=== PATIENT | male | born 1975 | race Caucasian/White ===

== ENCOUNTER 2016-08-06 09:21 | Inpatient (IN) | payer OTHER ==
[2016-08-06 11:59] VITALS: BMI 29.0
--- NOTE | 2016-08-06 14:13 | HP ---
COWS - Scale Resting Pulse: 1= OK 81-100 Sweatin=Flushed/Facial Moisture Restless Observation: 1= Difficult to Sit Still Pupil Size: 0= Normal to Room Light Bone or Joint Aches: 2= Severe Diffuse Aches Runny Nose/ Eye Tearin= Constantly Teary/Runny GI Upset > 30mins: 1= Stomach Cramp Tremor Observation: 2= Slight Tremor Visible Yawning Observation: 2= >3x During Session Anxiety or Irritability: 1=Feels Anxious/Irritable Goose Flesh Skin: 0=Smooth Skin COWS Score: 16 Admission [facility] - HPI Chief Complaint: I am here to detox. Allergies/Adverse Reactions: Allergies Allergy/AdvReac Type Severity Reaction Status Date / Time No Known Drug Allergies Allergy Verified 08/06/16 12:49 seafood Allergy Severe Difficulty Uncoded 08/06/16 12:49 Breathing History of Present Illness: pt is a 40yr old male with a history of heroin dependence seeking detox for treatment. Exam Limitations: No Limitations - Ebola screening Have you traveled outside of the country in the last 21 days: No Have you had contact with anyone from an Ebola affected area: No Have you been sick,other than usual withdrawal symptoms: No Do you have a fever: No - Review of Systems Constitutional: Chills, Diaphoresis, Changes in sleep, Unintentional Wgt. Loss EENT: reports: Tearing, Nose Congestion Respiratory: reports: Cough Cardiac: reports: No Symptoms Reported GI: reports: Nausea, Poor Appetite, Poor Fluid Intake : reports: No Symptoms Reported Musculoskeletal: reports: Back Pain, Joint Pain Integumentary: reports: Flushing, Sweating Neuro: reports: Tingling, Tremors Endocrine: reports: Excessive Sweating, Flushing, Intolerance to Cold, Intolerance to Heat Hematology: reports: No Symptoms Reported Psychiatric: reports: No Sypmtoms Reported, Judgement Intact, Orientated x3, Agitated, Anxious Other Systems: Reviewed and Negative Patient History - Patient Medical History Hx Anemia: No Hx Asthma: No Hx Chronic Obstructive Pulmonary Disease (COPD): No Hx Cancer: No Hx Cardiac Disorders: No Hx Congestive Heart Failure: No Hx Hypertension: No Hx Hypercholesterolemia: No Hx Pacemaker: No HX Cerebrovascular Accident: No Hx Seizures: No Hx Dementia: No Hx Diabetes: No Hx Gastrointestinal Disorders: No Hx Liver Disease: No Hx Genitourinary Disorders: No Hx Sexually Transmitted Disorders: No Hx Renal Disease (ESRD): No Hx Thyroid Disease: No Hx Human Immunodeficiency Virus (HIV): No (negative) Hx Hepatitis C: No (negative) Hx Depression: No Hx Suicide Attempt: No (denies) Hx Bipolar Disorder: No Hx Schizophrenia: No Other Medical History: anxiety - Patient Surgical History Past Surgical History: No - PPD History Previous Implant?: Yes Documented Results: Positive w/o proof Implanted On Prior R Admission?: No PPD to be Administered?: No - Reproductive History Patient is a Female of Child Bearing Age (11 -55 yrs old): No - Smoking Cessation Smoking history: Current every day smoker Aproximately how many cigarettes per day: 10 Hx Chewing Tobacco Use: Yes Initiated information on smoking cessation: Yes 'Breaking Loose' booklet given: 08/06/16 - Substance & Tx. History Hx Substance Use: Yes Substance Use Type: Heroin - Substances Abused Heroin Route: Injection Frequency: Daily Amount used: 5-7 bags Age of first use: 31 Date of Last Use: 08/06/16 Marijuana/Hashish Route: Smoking Frequency: 1-3 times last 30 days Amount used: 1 blunt Age of first use: 17 Date of Last Use: 08/05/16 Family Disease History - Family Disease History Family History: Denies Admission Physical Exam S - Vital Signs Vital Signs: Vital Signs - 24 hr 08/06/16 11:55 Temperature 97.6 F Pulse Rate 83 Respiratory 20 Rate Blood Pressure 117/68 - Physical General Appearance: Yes: Appropriately Dressed, Moderate Distress, Tremorous, Irritable, Sweating, Anxious HEENTM: Yes: Normal Voice, Hearing Decreased, Nasal Congestion, Muffled/Hoarse Voice, Other (soar throat) Respiratory: Yes: Lungs Clear, Normal Breath Sounds, No Respiratory Distress Neck: Yes: No masses,lesions,Nodules Breast: Yes: Within Normal Limits Cardiology: Yes: Regular Rhythm, Regular Rate, S1, S2 Abdominal: Yes: Normal Bowel Sounds Genitourinary: Yes: Within Normal Limits Back: Yes: Normal Inspection Musculoskeletal: Yes: Back pain Extremities: Yes: Normal Inspection, Tremors Neurological: Yes: Fully Oriented, Alert, Normal Response Integumentary: Yes: Normal Color, Diaphoresis, Track [place] Lymphatic: Yes: Within Normal Limits - Diagnostic (1) Opioid dependence with withdrawal Current Visit: Yes Status: Chronic (2) Nicotine dependence Current Visit: Yes Status: Chronic Qualifiers: Nicotine product type: cigarettes Substance use status: uncomplicated Qualified Code(s): F17.210 - Nicotine dependence, cigarettes, uncomplicated (3) Throat soreness Current Visit: Yes Status: Acute Comment: redness/sore throat Cleared for Admission [facility] - Detox or Rehab [facility] Level of Care: Medically Managed Detox Regimen/Protocol: Methadone [facility] Breath Alcohol Content Breath Alcohol Content: 0 Urine Drug Screen - Results Drug Screen Negative: No Urine Drug Screen Results: THC-Marijuana, OPI-Opiates, BZO-Benzodiazepines
[2016-08-06] MEDS ORDERED: MAG HYDROX/AL HYDROX/SIMETH 30 ML UNIT-DOSE CUP PO PRN (14:24)
[2016-08-06] MEDS ORDERED: IBUPROFEN 400 MG TABLET (FP) PO PRN (14:24)
[2016-08-06] MEDS ORDERED: MAGNESIUM CITRATE 300 ML BOTTLE PO PRN (14:24)
[2016-08-06] MEDS ORDERED: ACETAMINOPHEN 325 MG TABLET (FP) PO PRN (14:24)
[2016-08-06] MEDS ORDERED: MENTHOL/PHENOL 1 EACH UD MM PRN (14:24)
[2016-08-06] MEDS ORDERED: guaiFENesin/D-METHORPHAN HB 10 ML UNIT-DOSE CUPS PO PRN (14:24)
[2016-08-06] MEDS ORDERED: MAGNESIUM HYDROX 2400MG/30ML ORAL SUSPENSION 30 ML CUP PO PRN (14:24)
[2016-08-06] MEDS ORDERED: LOPERAMIDE HCL 2 MG CAPSULE PO PRN (14:24)
[2016-08-06] MEDS ORDERED: NICOTINE POLACRILEX 4 MG GUM BUC PRN (14:24)
[2016-08-06] MEDS ORDERED: hydrOXYzine PAMOATE 50 MG CAPSULE (FP) PO PRN (14:24)
[2016-08-06] MEDS ORDERED: P-EPHED 60MG/TRIPROLIDI 2.5MG TABLET PO PRN (14:24)
[2016-08-06] MEDS ORDERED: AZITHROMYCIN 250 MG TABLET (FP) PO ONE (14:38)
[2016-08-06] MEDS ORDERED: METHADONE HCL 10 MG TABLET (FOR DETOX USE ONLY) PO ONE ×2 (14:41→23:00)
[2016-08-06] MEDS: diazePAM 5 MG TABLET PO PRN ×2 (15:08→22:24)
--- NOTE | 2016-08-06 17:11 | CONSULT ---
[facility] Psychiatric Consult - Data Date of interview: 08/06/16 Admission source: [facility] Identifying data: First admission to [facility] for this 40 y/o male seeking detox treatment for heroin and marijuana dependence.Patient is , a father of one,homeless and employed. Substance Abuse History: - Smoking Cessation. Smoking history: Current every day smoker. Aproximately how many cigarettes per day: 10. Hx Chewing Tobacco Use: Yes. Initiated information on smoking cessation: Yes. 'Breaking Loose' booklet given: 08/06/16. - Substance & Tx. History. Hx Substance Use: Yes. Substance Use Type: Heroin. - Substances Abused. Heroin. Route: Injection. Frequency: Daily. Amount used: 5-7 bags. Age of first use: 31. Date of Last Use: 08/06/16. Marijuana/Hashish. Route: Smoking. Frequency: 1-3 times last 30 days. Amount used: 1 blunt. Age of first use: 17. Date of Last Use: 08/05/16. Confirmed by patient. Medical History: Patient endorses good general health. Psychiatric History: No reported history of psychiatric hospitalizations.Patient states that he stopped going to the methadone maintenance clinic at [facility] a month ago.Used to be on 60 mg/ day.Not on any psychotropic medication at this time.Mr Lockwood endorses the diagnosis of Anxiety Disorder (was reportedly prescribed xanax).No history of suicide attempts. Physical/Sexual Abuse/Trauma History: Patient denies. Additional Comment: Urine Drug Screen Results: THC-Marijuana, OPI-Opiates, BZO- Benzodiazepines.Noted. Mental Status Exam - Mental Status Exam Alert and Oriented to: Time, Place, Person Cognitive Function: Good Patient Appearance: Well Groomed Mood: Hopeful, Euthymic Affect: Normal Range Patient Behavior: Fatigued, Cooperative Speech Pattern: Clear, Appropriate Voice Loudness: Normal Thought Process: Goal Oriented Thought Disorder: Not Present Hallucinations: Denies Suicidal Ideation: Denies Homicidal Ideation: Denies Insight/Judgement: Poor Sleep: Poorly, Difficulty falling asleep Appetite: Good Muscle strength/Tone: Normal Gait/Station: Normal Psychiatric Findings - Problem List ([place] 1, 2,3) (1) Opioid dependence with withdrawal Current Visit: Yes Status: Acute (2) Nicotine dependence Current Visit: Yes Status: Acute Qualifiers: Nicotine product type: cigarettes Substance use status: uncomplicated Qualified Code(s): F17.210 - Nicotine dependence, cigarettes, uncomplicated (3) Marijuana dependence Current Visit: Yes Status: Acute (4) Substance induced mood disorder Current Visit: Yes Status: Acute (5) Insomnia Current Visit: Yes Status: Acute - Initial Treatment Plan Initial Treatment Plan: Psychoeducation.Detoxification.Ambien 10 mg po hs prn.Patient is made aware of the potential for parasomnias.He is in agreement with this careplan.Observation.
[2016-08-06] MEDS: CLOTRIMAZOLE 10 MG TROCHE (FP) PO SCH ×2 (17:49→22:24)
[2016-08-06 20:50] LABS: URINE APPEARANCE CLEAR; URINE BILIRUBIN NEGATIVE (NEGATIVE); URINE BLOOD NEGATIVE (NEGATIVE); URINE COLOR LTYELLOW; URINE GLUCOSE (UA) NEGATIVE (NEGATIVE); URINE KETONE NEGATIVE (NEGATIVE); URINE LEUK ESTERASE NEGATIVE (NEGATIVE); URINE NITRITE NEGATIVE (NEGATIVE); URINE PROTEIN NEGATIVE (NEGATIVE); URINE UROBILINOGEN NEGATIVE E.U./dl (0.2-1.0)
[2016-08-06] MEDS: THIAMINE HCL 100 MG TABLET (FP) PO SCH (22:24)
[2016-08-07] MEDS: CLOTRIMAZOLE 10 MG TROCHE (FP) PO SCH ×5 (05:21→22:48)
[2016-08-07 08:36] LABS: HIV 1 & 2 AB NEGATIVE; HIV 1 AGp24 NEGATIVE
[2016-08-07] MEDS ORDERED: METHADONE HCL 10 MG TABLET (FOR DETOX USE ONLY) PO ONE (10:00)
[2016-08-07 10:12] LABS: ALBUMIN 3.6 g/dl (3.4-5.0); ANION GAP 9 (8-16); CALCIUM 8.9 mg/dL (8.5-10.1); CO2 30 mmol/L (21-32); GLUCOSE,RANDOM 108 mg/dL (74-106); MCH 31.5 pg (25.7-33.7); MEAN CELL VOLUME 90.1 fl (80-96); MEAN PLT VOLUME 9.9 fl (7.5-11.1); PLATELET COUNT 197 K/MM3 (134-434); RDW 12.9 % (11.9-15.9); WHITE BLOOD COUNT 7.7 K/mm3 (4.0-10.0)
[2016-08-07 10:16] LABS: ALK PHOS 139 U/L (45-117); BILIRUBIN,TOTAL 0.2 mg/dL (0.2-1.0); COCKROFT - GAULT 132.34; SGOT/AST 34 U/L (15-37); SGPT/ALT 59 U/L (12-78); TOT PROT 6.8 g/dl (6.4-8.2)
[2016-08-07] MEDS: AZITHROMYCIN 250 MG TABLET (FP) PO SCH (10:38)
[2016-08-07] MEDS: PRENATAL VITAMINS W/ FOLIC ACID TABLET (FP) PO SCH (10:38)
[2016-08-07] MEDS: NICOTINE 21 MG/24 HOURS TOPICAL PATCH TD SCH (10:39)
[2016-08-07] MEDS: diazePAM 5 MG TABLET PO PRN ×4 (10:39→22:11)
--- NOTE | 2016-08-07 12:21 | EKG ---
Test Reason : Blood Pressure : / mmHG Vent. Rate : 083 BPM Atrial Rate : 083 BPM P-R Int : 138 ms QRS Dur : 106 ms QT Int : 364 ms P-R-T Axes : 052 060 035 degrees QTc Int : 427 ms NORMAL SINUS RHYTHM NORMAL ECG NO PREVIOUS ECGS AVAILABLE Confirmed by MD MATTHEW, TEODORA ([id number]) on 08/07/2016 12:21:37 PM Referred By: Charles Kapadia Confirmed By:TEODORA CASTRO MD
--- NOTE | 2016-08-07 12:52 | PN ---
S COWS - Scale Resting Pulse: 0= [place] 80 or Below Sweatin= Chills/Flushing Restless Observation: 3= Extraneous Movement Pupil Size: 1= Pupils >than Normal Bone or Joint Aches: 2= Severe Diffuse Aches Runny Nose/ Eye Tearin= Runny Nose/Eyes GI Upset > 30mins: 3= Vomiting/Diarrhea Tremor Observation of Outstretched Hands: 2= Slight Tremor Visible Yawning Observation: 1= 1-2x During Session Anxiety or Irritability: 2=Irritable/Anxious Goose Flesh Skin: 0=Smooth Skin COWS Score: 17 S Progress Note (SOAP) Subjective: ALERT,IRRITABLE,ANXIOUS,INTERRUPTED SLEEP,TREMOR,PAIN IN THE BODY AND BACK Objective: 08/07/16 12:51 Vital Signs Temperature 98.6 F 08/07/16 10:00 Pulse Rate 70 08/07/16 10:00 Respiratory Rate 18 08/07/16 10:00 Blood Pressure 128/83 08/07/16 10:00 O2 Sat by Pulse Oximetry (%) EKG NSR,NORMAL ECG Laboratory Last Values WBC 7.7 K/mm3 (4.0-10.0) 08/07/16 06:00 RBC 4.26 M/mm3 (4.00-5.60) 08/07/16 06:00 Hgb 13.4 GM/dL (11.7-16.9) 08/07/16 06:00 Hct 38.4 % (35.4-49) 08/07/16 06:00 MCV 90.1 fl (80-96) 08/07/16 06:00 MCHC 35.0 g/dl (32.0-35.9) 08/07/16 06:00 RDW 12.9 % (11.9-15.9) 08/07/16 06:00 Plt Count 197 K/MM3 (134-434) 08/07/16 06:00 MPV 9.9 fl (7.5-11.1) 08/07/16 06:00 Sodium 139 mmol/L (136-145) 08/07/16 06:00 Potassium 3.7 mmol/L (3.5-5.1) 08/07/16 06:00 Chloride 100 mmol/L (98-107) 08/07/16 06:00 Carbon Dioxide 30 mmol/L (21-32) 08/07/16 06:00 Anion Gap 9 (8-16) 08/07/16 06:00 BUN 15 mg/dL (7-18) 08/07/16 06:00 Creatinine 1.0 mg/dL (0.7-1.3) 08/07/16 06:00 Creat Clearance w eGFR > 60 (>60) 08/07/16 06:00 Random Glucose 108 mg/dL (74-106) H 08/07/16 06:00 Calcium 8.9 mg/dL (8.5-10.1) 08/07/16 06:00 Total Bilirubin 0.2 mg/dL (0.2-1.0) 08/07/16 06:00 AST 34 U/L (15-37) 08/07/16 06:00 ALT 59 U/L (12-78) 08/07/16 06:00 Alkaline Phosphatase 139 U/L (45-117) H 08/07/16 06:00 Total Protein 6.8 g/dl (6.4-8.2) 08/07/16 06:00 Albumin 3.6 g/dl (3.4-5.0) 08/07/16 06:00 Urine Color Ltyellow 08/06/16 15:45 Urine Appearance Clear 08/06/16 15:45 Urine pH 5.0 (5.0-8.0) 08/06/16 15:45 Ur Specific [place] 1.010 (1.005-1.025) 08/06/16 15:45 Urine Protein Negative (NEGATIVE) 08/06/16 15:45 Urine Glucose (UA) Negative (NEGATIVE) 08/06/16 15:45 Urine Ketones Negative (NEGATIVE) 08/06/16 15:45 Urine Blood Negative (NEGATIVE) 08/06/16 15:45 Urine Nitrite Negative (NEGATIVE) 08/06/16 15:45 Urine Bilirubin Negative (NEGATIVE) 08/06/16 15:45 Urine Urobilinogen Negative E.U./dl (0.2-1.0) 08/06/16 15:45 Ur Leukocyte Esterase Negative (NEGATIVE) 08/06/16 15:45 RPR Titer Nonreactive (NONREACTIVE) 08/07/16 06:00 Hepatitis C Antibody 0.1 s/co ratio (0.0-0.9) 08/06/16 15:55 HIV 1&2 Antibody Screen Negative 08/06/16 13:30 HIV P24 Antigen Negative 08/06/16 13:30 Assessment: 08/07/16 12:52 WITHDRAWAL SYMPTOM Plan: CONTINUE DETOX
[2016-08-07] MEDS: CYCLOBENZAPRINE HCL 10 MG TABLET (FP) PO PRN (22:11)
[2016-08-07] MEDS: THIAMINE HCL 100 MG TABLET (FP) PO SCH (22:11)
[2016-08-07] MEDS: diphenhydrAMINE HCL 50 MG CAPSULE PO PRN (22:11)
[2016-08-08] MEDS: CLOTRIMAZOLE 10 MG TROCHE (FP) PO SCH ×5 (05:51→22:06)
[2016-08-08] MEDS: diazePAM 5 MG TABLET PO PRN ×4 (05:52→22:06)
[2016-08-08] MEDS ORDERED: METHADONE HCL 5 MG TABLET (FOR DETOX USE ONLY) PO ONE (10:00)
[2016-08-08] MEDS: AZITHROMYCIN 250 MG TABLET (FP) PO SCH (10:08)
[2016-08-08] MEDS: PRENATAL VITAMINS W/ FOLIC ACID TABLET (FP) PO SCH (10:09)
[2016-08-08] MEDS: NICOTINE 21 MG/24 HOURS TOPICAL PATCH TD SCH (10:11)
--- NOTE | 2016-08-08 11:49 | PN ---
S COWS - Scale Resting Pulse: 0= [place] 80 or Below Sweatin= Chills/Flushing Restless Observation: 3= Extraneous Movement Pupil Size: 1= Pupils >than Normal Bone or Joint Aches: 2= Severe Diffuse Aches Runny Nose/ Eye Tearin= Runny Nose/Eyes GI Upset > 30mins: 2= Nausea/Diarrhea Tremor Observation of Outstretched Hands: 2= Slight Tremor Visible Yawning Observation: 1= 1-2x During Session Anxiety or Irritability: 2=Irritable/Anxious Goose Flesh Skin: 0=Smooth Skin COWS Score: 16 S Progress Note (SOAP) Subjective: ALERT,IRRITABLE,ANXIOUS,INTERRUPTED SLEEP,TREMOR,PAIN IN THE BODY AND BACK Objective: 08/08/16 11:53 Vital Signs Temperature 98.6 F 08/08/16 09:41 Pulse Rate 78 08/08/16 09:41 Respiratory Rate 18 08/08/16 09:41 Blood Pressure 146/91 08/08/16 09:41 O2 Sat by Pulse Oximetry (%) Laboratory Last Values WBC 7.7 K/mm3 (4.0-10.0) 08/07/16 06:00 RBC 4.26 M/mm3 (4.00-5.60) 08/07/16 06:00 Hgb 13.4 GM/dL (11.7-16.9) 08/07/16 06:00 Hct 38.4 % (35.4-49) 08/07/16 06:00 MCV 90.1 fl (80-96) 08/07/16 06:00 MCHC 35.0 g/dl (32.0-35.9) 08/07/16 06:00 RDW 12.9 % (11.9-15.9) 08/07/16 06:00 Plt Count 197 K/MM3 (134-434) 08/07/16 06:00 MPV 9.9 fl (7.5-11.1) 08/07/16 06:00 Sodium 139 mmol/L (136-145) 08/07/16 06:00 Potassium 3.7 mmol/L (3.5-5.1) 08/07/16 06:00 Chloride 100 mmol/L (98-107) 08/07/16 06:00 Carbon Dioxide 30 mmol/L (21-32) 08/07/16 06:00 Anion Gap 9 (8-16) 08/07/16 06:00 BUN 15 mg/dL (7-18) 08/07/16 06:00 Creatinine 1.0 mg/dL (0.7-1.3) 08/07/16 06:00 Creat Clearance w eGFR > 60 (>60) 08/07/16 06:00 Random Glucose 108 mg/dL (74-106) H 08/07/16 06:00 Calcium 8.9 mg/dL (8.5-10.1) 08/07/16 06:00 Total Bilirubin 0.2 mg/dL (0.2-1.0) 08/07/16 06:00 AST 34 U/L (15-37) 08/07/16 06:00 ALT 59 U/L (12-78) 08/07/16 06:00 Alkaline Phosphatase 139 U/L (45-117) H 08/07/16 06:00 Total Protein 6.8 g/dl (6.4-8.2) 08/07/16 06:00 Albumin 3.6 g/dl (3.4-5.0) 08/07/16 06:00 Urine Color Ltyellow 08/06/16 15:45 Urine Appearance Clear 08/06/16 15:45 Urine pH 5.0 (5.0-8.0) 08/06/16 15:45 Ur Specific [place] 1.010 (1.005-1.025) 08/06/16 15:45 Urine Protein Negative (NEGATIVE) 08/06/16 15:45 Urine Glucose (UA) Negative (NEGATIVE) 08/06/16 15:45 Urine Ketones Negative (NEGATIVE) 08/06/16 15:45 Urine Blood Negative (NEGATIVE) 08/06/16 15:45 Urine Nitrite Negative (NEGATIVE) 08/06/16 15:45 Urine Bilirubin Negative (NEGATIVE) 08/06/16 15:45 Urine Urobilinogen Negative E.U./dl (0.2-1.0) 08/06/16 15:45 Ur Leukocyte Esterase Negative (NEGATIVE) 08/06/16 15:45 RPR Titer Nonreactive (NONREACTIVE) 08/07/16 06:00 Hepatitis C Antibody 0.1 s/co ratio (0.0-0.9) 08/06/16 15:55 HIV 1&2 Antibody Screen Negative 08/06/16 13:30 HIV P24 Antigen Negative 08/06/16 13:30 Assessment: 08/08/16 11:54 WITHDRAWAL SYMPTOM Plan: CONTINUE DETOX
[2016-08-08] MEDS: diphenhydrAMINE HCL 50 MG CAPSULE PO PRN (22:05)
[2016-08-08] MEDS: CYCLOBENZAPRINE HCL 10 MG TABLET (FP) PO PRN (22:05)
[2016-08-08] MEDS: THIAMINE HCL 100 MG TABLET (FP) PO SCH (22:06)
[2016-08-09] MEDS: CLOTRIMAZOLE 10 MG TROCHE (FP) PO SCH (05:17)
[2016-08-09] MEDS: diazePAM 5 MG TABLET PO PRN (05:18)
--- NOTE | 2016-08-09 09:35 | PN ---
S Progress Note Note: pt refused to continue detox; refused to answer why and signed out ama.
--- NOTE | 2016-08-09 09:37 | DS ---
[facility] Detox Discharge Summary Admission Date: 08/06/16 Discharge Date: 08/09/16 - History Present History: Cannabis Dependence, Opioid Dependence - Physical Exam Results Vital Signs: Vital Signs Temperature 98.1 F 08/09/16 06:00 Pulse Rate 56 L 08/09/16 06:00 Respiratory Rate 18 08/09/16 06:00 Blood Pressure 119/66 08/09/16 06:00 O2 Sat by Pulse Oximetry (%) - Treatment Hospital Course: Detox Protocol Followed, Detoxed Safely, Responded well, Discharged Condition Good, Rehab Referral Accepted - Medication Discharge Medications: Ambulatory Orders Alprazolam [Xanax Xr] 1 mg PO DAILY 08/06/16 - Diagnosis (1) Opioid dependence with withdrawal Current Visit: Yes Status: Chronic (2) Nicotine dependence Current Visit: Yes Status: Chronic Qualifiers: Nicotine product type: cigarettes Substance use status: uncomplicated Qualified Code(s): F17.210 - Nicotine dependence, cigarettes, uncomplicated (3) Throat soreness Current Visit: Yes Status: Acute - AMA Did Patient Leave Against Medical Advice: Yes
[2016-08-09 09:56] VITALS: BP 129/74; PULSE 80; TEMP 97.7
[2016-08-09] MEDS ORDERED: METHADONE HCL 5 MG TABLET (FOR DETOX USE ONLY) PO ONE (10:00)
[2016-08-10] MEDS ORDERED: METHADONE HCL 10 MG TABLET (FOR DETOX USE ONLY) PO ONE (10:00)
[2016-08-11] MEDS ORDERED: METHADONE HCL 5 MG TABLET (FOR DETOX USE ONLY) PO ONE (06:00)
== END 2016-08-09 09:30 | disposition left against medical advice (07) | DRG 770 ==
LOC: YASAS 09:21 → Y6N 13:30
PROVIDERS: ADMIT Internal Medicine; ATTEND Internal Medicine
PROC: HZ2ZZZZ Detoxification Services for Substance Abuse Treatment (ICD-10-PCS; principal; 2016-08-06)
DX: F11.23 Opioid dependence with withdrawal (principal); F14.20 Cocaine dependence, uncomplicated; F17.210 Nicotine dependence, cigarettes, uncomplicated; F19.24 Other psychoactive substance dependence with psychoactive substance-induced mood disorder; J02.9 Acute pharyngitis, unspecified; G47.00 Insomnia, unspecified
CPT/HCPCS: 36415; 80053; 81003; 85027; 86593; 86803; 87389; 93005; 93010